=== PATIENT | male | born 1990 | race Two or more races ===

== ENCOUNTER 2024-07-04 14:28 | Emergency (ER) | payer MEDICAID, SELFPAY ==
[2024-07-04 14:29] VITALS: BMI 20.7
[2024-07-04 14:46] VITALS: BP 125/77; PULSE 83; RESP 18; TEMP 36.9; O2SAT 96
--- NOTE | 2024-07-04 14:47 | PD.EDRME ---
Rapid Medical Screening Exam RME Arrival date/time: 07/04/24 14:28 Chief Complaint: Back Pain/Injury Time Seen by Provider: 07/04/24 14:46 Vital signs: Vital Signs Temperature 98.4 F 07/04/24 14:46 Pulse Rate 83 07/04/24 14:46 Respiratory Rate 18 07/04/24 14:46 Blood Pressure 125/77 07/04/24 14:46 Pulse Oximetry (%) 96 07/04/24 14:46 Oxygen Delivery Method Room Air 07/04/24 14:46
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
[2024-07-04] MEDS: KETOROLAC INJ 60 MG/2 ML VIAL 30 MG IM (18:28)
== END 2024-07-04 18:37 | disposition home or self-care (01) ==
PROVIDERS: Emergency Provider Emergency Medicine; PCP Nurse Practitioner Family
DX: S39.012A Strain of muscle, fascia and tendon of lower back, initial encounter (principal); S29.9XXA Unspecified injury of thorax, initial encounter; V89.9XXA Person injured in unspecified vehicle accident, initial encounter
CPT/HCPCS: 72070; 72072; 72100; 96372; 99283; J1885

== ENCOUNTER → 2024-10-24 | Outpatient (CLI) | payer MEDICAID, SELFPAY ==
[2024-10-24 12:17] LABS: Basophils # (Auto) 0.1 Thou/mm3 (0.0-0.2); Basophils % (Auto) 1 % (0-2.5); Eosinophils # (Auto) 0.1 Thou/mm3 (0.0-0.5); Eosinophils % (Auto) 2 % (0-10); Hematocrit 47.6 % (41.0-53.0); Hemoglobin 16.8 g/dL (13.5-16.0); Immature Granulocytes Auto 0.04 Thou/mm3 (0.00-0.00); Lymphocytes # (Auto) 1.8 Thou/mm3 (1.0-4.8); Lymphocytes % (Auto) 24 % (10-50); Mean Corpuscular HGB Conc 35.3 g/dl (31.0-37.0); Mean Corpuscular Hemoglobin 31.2 pg (25.0-35.0); Mean Corpuscular Volume 89 fL (80-100); Monocytes # (Auto) 0.5 Thou/mm3 (0.0-0.8); Monocytes % (Auto) 6 % (0-12); Neutrophils # (Auto) 5.1 Thou/mm3 (1.8-7.7); Neutrophils % (Auto) 67 % (37-80); Nucleated Red Blood Cell # 0.00 Thou/mm3 (0.00-0.00); Nucleated Red Blood Cell % 0 /100 WBC (0); Platelet Count 225 Thou/mm3 (140-440); RDW Standard Deviation 38.2 fL (35.1-43.9); Red Blood Count 5.38 Miln/mm3 (4.50-5.90); White Blood Count 7.6 Thou/mm3 (3.8-10.6)
[2024-10-24 13:40] LABS: Alanine Aminotransferase 24 U/L (10-49); Albumin, Serum 4.8 gm/dL (3.5-5.0); Albumin/Globulin Ratio 1.5 (1.2-2.2); Alkaline Phosphatase 95 U/L (46-116); Anion Gap 11 (7-16); Aspartate Amino Transferase 23 U/L (0-34); BUN/Creatinine Ratio 12 Ratio (12-20); Bilirubin,Total 1.0 mg/dL (0.3-1.2); Blood Urea Nitrogen 12 mg/dL (9-23); Calcium 10.1 mg/dL (8.3-10.6); Calcium (Corrected) 10.1 mg/dL (8.5-10.1); Carbon Dioxide 26.6 mMol/L (20.0-31.0); Chloride 102 mMol/L (98-107); Creatinine (Component) 1.0 mg/dL (0.6-1.3); Globulin 3.2 gm/dL (2.3-3.5); Glucose 94 mg/dL (74-106); Osmolality,Calculated 279 (275-295); Potassium 4.2 mMol/L (3.4-5.1); Sodium 140 mMol/L (136-145); Total Protein 8.0 gm/dL (5.7-8.2); eGFR > 60 See Note
== END | disposition home or self-care (01) ==
PROVIDERS: PCP Family Medicine; Referring Provider Family Medicine; Visit Provider Family Medicine
DX: R13.10 Dysphagia, unspecified (principal)
CPT/HCPCS: 36415; 80053; 85025

== ENCOUNTER → 2024-11-07 | Outpatient (CLI) | payer MEDICAID, SELFPAY ==
--- NOTE | 2024-11-07 09:25 | XR_ITS ---
Examination: Esophagram standard Fluoroscopy Upright PA chest single view Upright soft tissue lateral neck single view 61 spot fluoroscopic films of the esophagus INDICATIONS: Difficulty swallowing 3 weeks Date and time: November 08, 2019 0516 hours TECHNIQUE AND FINDINGS: Upright PA chest single view demonstrates normal heart size, lungs are clear Soft tissue lateral neck demonstrates moderate cervical spondylosis, normal epiglottis Patient swallowed thin barium with primary peristaltic esophageal waves noted Intermittent gastroesophageal reflux No esophageal ulceration No constricting esophageal lesion There are secondary and tertiary esophageal contractions IMPRESSION: Esophageal dysmotility Intermittent gastroesophageal reflux. No stricture at the gastroesophageal junction Fluoroscopy 0.11 minutes 61 spot fluoroscopic films of the esophagus
== END | disposition home or self-care (01) ==
PROVIDERS: PCP Family Medicine; Referring Provider Family Medicine; Visit Provider Family Medicine
DX: K21.9 Gastro-esophageal reflux disease without esophagitis (principal); K22.89 Other specified disease of esophagus
CPT/HCPCS: 74220; A4649

== ENCOUNTER 2024-11-30 05:58 | Observation (INO) | payer MEDICAID, SELFPAY ==
[2024-11-30] VITALS (7 sets, daily range): BP systolic 105–128; BP diastolic 68–92; PULSE 70–93; RESP 14–22; TEMP 36.2–36.8; O2SAT 93–99; BMI 23.1; BMI 22.1
--- NOTE | 2024-11-30 06:17 | PD.EDRME ---
Rapid Medical Screening Exam E Arrival date/time: 11/30/24 05:58 This is a 34-year-old male with a history of alcohol syndrome with difficulty with speech coming in with his father for 2 to 3 days of difficulty eating, swallowing, nausea. Father reports that symptoms started after the patient had a choking episode about 1 month ago Chief Complaint: General Adult/Misc Complain Time Seen by Provider: 11/30/24 06:12 Vital signs: Vital Signs Temperature 97.6 F 11/30/24 06:10 Pulse Rate 86 11/30/24 06:10 Respiratory Rate 22 H 11/30/24 06:10 Blood Pressure 106/73 11/30/24 06:10 Pulse Oximetry (%) 99 11/30/24 06:10 Oxygen Delivery Method Room Air 11/30/24 06:10
[2024-11-30 06:42] LABS: Collection Type, Urine Clean Catch; Squamous Epithelial Cell,Urine 0 /hpf (0-5)
[2024-11-30 06:44] LABS: Basophils # (Auto) 0.1 Thou/mm3 (0.0-0.2); Basophils % (Auto) 1 % (0-2.5); Eosinophils # (Auto) 0.1 Thou/mm3 (0.0-0.5); Eosinophils % (Auto) 1 % (0-10); Hematocrit 47.2 % (41.0-53.0); Hemoglobin 16.4 g/dL (13.5-16.0); Immature Granulocytes Auto 0.04 Thou/mm3 (0.00-0.00); Lymphocytes # (Auto) 1.4 Thou/mm3 (1.0-4.8); Lymphocytes % (Auto) 15 % (10-50); Mean Corpuscular HGB Conc 34.7 g/dl (31.0-37.0); Mean Corpuscular Hemoglobin 31.2 pg (25.0-35.0); Mean Corpuscular Volume 90 fL (80-100); Monocytes # (Auto) 0.4 Thou/mm3 (0.0-0.8); Monocytes % (Auto) 4 % (0-12); Neutrophils # (Auto) 7.9 Thou/mm3 (1.8-7.7); Neutrophils % (Auto) 80 % (37-80); Nucleated Red Blood Cell # 0.00 Thou/mm3 (0.00-0.00); Nucleated Red Blood Cell % 0 /100 WBC (0); Platelet Count 210 Thou/mm3 (140-440); RDW Standard Deviation 39.5 fL (35.1-43.9); Red Blood Count 5.26 Miln/mm3 (4.50-5.90); White Blood Count 9.9 Thou/mm3 (3.8-10.6)
[2024-11-30 06:56] LABS: Amorphous Crystals,Urine Present (Absent); Bilirubin,Urine Negative (Negative); Blood,Urine Negative (Negative); Clarity,Urine Clear (Clear/Hazy); Color,Urine Yellow (Lt Yel-Yel); Culture Indicated,Urine Not Indicated; Glucose, Urine Negative (Negative); Ketones,Urine 1+ (Negative); Leukocyte Esterase,Urine Negative (Negative); Nitrite,Urine Negative (Negative); PH,Urine 6.5 (5.0-7.0); Protein,Urine Trace (Neg - Trace); RBC,Urine 4 /hpf (0-3); Specific Gravity,Urine 1.027 (1.001-1.035); Urobilinogen,Urine Negative mg/dL (0.0-1.0); WBC,Urine 1 /hpf (0-5)
[2024-11-30 06:58] LABS: Amphetamine/Methamp Scrn,U Negative (Negative); Barbiturate Screen,Urine Negative (Negative); Benzodiazepines Screen,Urine Negative (Negative); Benzoylecgonine Screen, Ur Negative (Negative); Fentanyl Screen,Urine Negative (Negative); Opiate Screen,Urine Negative (Negative); THC Screen,Urine Negative (Negative)
[2024-11-30 07:02] LABS: Carbon Dioxide 27.0 mMol/L (20.0-31.0); Chloride 107 mMol/L (98-107); Potassium 3.9 mMol/L (3.4-5.1); Sodium 144 mMol/L (136-145)
[2024-11-30 07:03] LABS: Alanine Aminotransferase 42 U/L (10-49); Albumin, Serum 4.8 gm/dL (3.5-5.0); Albumin/Globulin Ratio 1.7 (1.2-2.2); Alkaline Phosphatase 100 U/L (46-116); Anion Gap 10 (7-16); Aspartate Amino Transferase 33 U/L (0-34); BUN/Creatinine Ratio 16 Ratio (12-20); Bilirubin,Total 1.4 mg/dL (0.3-1.2); Blood Urea Nitrogen 14 mg/dL (9-23); Calcium 10.0 mg/dL (8.3-10.6); Calcium (Corrected) 10.0 mg/dL (8.5-10.1); Creatinine (Component) 0.9 mg/dL (0.6-1.3); Globulin 2.9 gm/dL (2.3-3.5); Glucose 104 mg/dL (74-106); Lipase 32 U/L (12-53); Magnesium 2.1 mg/dL (1.6-2.6); Osmolality,Calculated 287 (275-295); Total Protein 7.7 gm/dL (5.7-8.2); eGFR > 60 See Note
[2024-11-30 07:05] LABS: Sperm,Urine Present
--- NOTE | 2024-11-30 07:51 | XR_ITS ---
Examination: CT chest with intravenous contrast CT abdomen with intravenous contrast CT pelvis with intravenous contrast 2-D coronal and sagittal reconstructions Time of exam: November 30, 2024, 0843 hours INDICATIONS: Unable to swallow, 20 pound weight loss over the last month, generalized abdominal pain today CTDI: vol (mGy) : 11.4 DLP: (mGycm): 898 Technique: Multiple axial images of the chest, abdomen and pelvis with intravenous contrast, 3.0 mm slice thickness. Images obtained post intravenous injection Isovue 370 60 cc. 2-D sagittal and coronal reconstructions. Low dose protocols were performed. One or more of the following dose reduction techniques were used; automated exposure control, adjustment of the mA and/or KV according to patient size, use of iterative reconstruction technique. Findings: No thoracic aortic aneurysmal dilatation or dissection No pulmonary artery emboli on this non-CTA study No paratracheal tracheobronchial or bronchopulmonary adenopathy. 2 mm pulmonary nodule anterior segment right upper lobe image 183. No pneumonia or pulmonary edema No thoracic esophageal mass No focal liver or splenic lesion The inferior vena cava is dilated, clinical correlation advised No adrenal mass No renal or ureteral calculi Abdominal aorta is normal in size 14 mm fat-containing umbilical hernia. No bowel obstruction No pericecal inflammatory change No diverticulitis Normal seminal vesicles. Prostate is not enlarged Urinary bladder intact The osseous structures are intact IMPRESSION: No mediastinal lymphadenopathy. No pneumonia or pulmonary edema 2 mm pulmonary nodule anterior segment right upper lobe, recommend PA lateral chest 6 month follow-up No pneumonia or pulmonary edema No esophageal mass appreciated Inferior vena cava is dilated, measuring 35 mm, clinical correlation advised, consider abdominal sonography follow-up to exclude clot in the inferior vena cava No CT findings of bowel obstruction appendicitis or diverticulitis
--- NOTE | 2024-11-30 08:31 | XR_ITS ---
Examination: CT soft tissue neck, with intravenous contrast. 2-D coronal reconstructions. 2-D sagittal reconstructions. Date and time of exam :November 30, 2024, 0847 hours INDICATIONS: Unable to swallow with 20 pound weight loss this month, generalized abdominal pain. CTDI: vol (mGy):11.6 DLP: (mGycm):353 Technique: 1.25 mm axial sections of the neck of the obtained. Coronal and sagittal reconstructions have been obtained. Intravenous contrast administered 60 cc Isovue-370. Low dose protocols were performed. One or more of the following dose reduction techniques were used; automated exposure control, adjustment of the mA and/or KV according to patient size, use of iterative reconstruction technique. Findings: No nasopharyngeal or oropharyngeal mass Patient motion significantly degrades scan image quality The larynx does not appear remarkable Thyroid lobes are not enlarged The esophageal wall in the neck region appears thickened Lung apices are clear No pathologic cervical lymphadenopathy Mild to moderate degenerative disc disease C5-C6 IMPRESSION: No soft tissue neck mass or pathologic lymphadenopathy Thickening of the esophageal wall in the neck region Given the patient's presentation, consider repeat standard fluoroscopically guided esophagram follow-up
[2024-11-30] MEDS: ONDANSETRON INJ 2 MG/ML INJ 2 ML 4 MG IVP (09:34)
[2024-11-30] MEDS: HYDROmorphone INJ 2 MG/ML VIAL 0.5 MG IVP (09:34)
--- NOTE | 2024-11-30 10:35 | EDNOTE_ITS ---
ED General RME/HPI General Chief complaint: General Adult/Misc Complain Stated complaint: THROAT PAIN,VOMITING, NOT EATING Time Seen by Provider: 11/30/24 06:12 Arrival date/time: 11/30/24 05:58 RME / HPI RME / HPI narrative: 11/30/24 05:58 This is a 34-year-old male with a history of alcohol syndrome with difficulty with speech coming in with his father for 2 to 3 days of difficulty eating, swallowing, nausea. Father reports that symptoms started after the patient had a choking episode about [address] AMBER SHAW ED EVALUATION 34 year old male with history of alcohol syndrome and developmental delay, presents to the ED for evaluation of abdominal pain that began earlier this morning. Patient reports the pain is located throughout the abdomen adding I feel horrible and rating as severe. Associated with constipation, last bowel movement two days ago. Denies fever, chills, chest pain, cough, shortness of breath, vomiting, diarrhea, or urinary complaints. Additional history is provided by the patient's grandfather, who reports that approximately 1.5 months ago, the patient choked on a piece of watermelon while eating. Since then, the patient has had persistent difficulty swallowing, with a sensation of something stuck in my throat. Every attempt to swallow solids has been followed by immediate vomiting. Patient has been on a pureed and liquid diet due to this issue and has had ~ 19lb weight loss. Grandfather reports the patient has consulted his PCP and underwent a swallow study, which showed no obstruction. The patient has been referred to a GI specialist for further evaluation. Related Data Home Medications ?Medication ?Instructions ?Recorded ?Confirmed sertraline 25 mg tablet (Zoloft) 50 mg PO HS Anxiety # 0 tabs 02/03/14 04/19/18 Previous Rx's ?Medication ?Instructions ?Recorded ibuprofen 600 mg tablet 1 tab PO Q8HR PRN INFLAMMATI ON #30 05/20/16 tabs ondansetron 4 mg disintegrating 4 mg PO Q8H PRN nausea and 11/01/22 tablet vomiting #10 tabs lidocaine 5 % topical patch 1 patch topical Q24H #15 e a 07/04/24 (Lidoderm) methocarbamol 500 mg tablet 500 mg PO TID #15 tabs Allergies Allergy/AdvReac Type Severity Reaction Status Date / Time No Known Allergies Allergy Verified 11/30/24 06:00 Review of Systems Review of Systems Systems Reviewed: All systems reviewed, normal except as documented Past Medical History Past Medical History RESPIRATORY: Positive Asthma GASTROINTESTINAL: Positive Gastrointestinal Disorders MUSCULOSKELETAL: Positive Musculoskeletal Disorders and Arthritis PSYCHO/SOCIAL: Positive Depression and Anxiety Family History FAMILY HISTORY: Positive Family Endocrine Disorders (PT'S GRANDFATHER DM) Surgical History SURGICAL: Positive Knee Sx (BILAT.) Social History SMOKING STATUS: Never smoker ED Exam Narrative Physical exam: See MDM Course Quality Measures none Orders Category Date Time Status CT Screening NOW Care 11/30/24 07:[address] Screening NOW Care 11/30/24 08:31 Active IV [Insert IV] NOW Care 11/30/24 07:51 Active Consult to Gastroenterology Stat Cons 11/30/24 10:[address] chest abdomen pelvis w Stat Exams 11/30/24 07:[address] soft tissue neck w con Stat Exams 11/30/24 08:31 Completed XR esophogram standard Stat Exams 11/30/24 10:24 Stop Req CBC Stat Lab 11/30/24 06:31 Completed Comprehensive Metabolic Panel Stat Lab 11/30/24 06:31 Completed Drug Screen,Urine Stat Lab 11/30/24 06:37 Completed Lipase Stat Lab 11/30/24 06:31 Completed Mag [Magnesium] Stat Lab 11/30/24 06:31 Completed UA, C/S IF [Urinalysis, C/S if Indicated] Stat Lab 11/30/24 06:37 Completed HYDROmorphone INJ [Dilaudid Inj] Med 11/30/24 09:30 Active 0.5 mg IVP Q30MIN PRN Ondansetron Inj [Zofran Inj] Med 11/30/24 09:24 Discontinued 4 mg IVP X1 ONE Vital Signs Vital signs: Vital Signs Temperature 97.6 F 11/30/24 06:10 Pulse Rate 86 11/30/24 06:10 Respiratory Rate 22 H 11/30/24 06:10 Blood Pressure 106/73 11/30/24 06:10 Pulse Oximetry (%) 99 11/30/24 06:10 Oxygen Delivery Method Room Air 11/30/24 06:10 Discharge Plan Plan Patient Disposition: Admit Acute Care w/in Hospital Prescriptions/Referrals Prescriptions/Med Rec: No Action sertraline [Zoloft] 25 MG tablet 50 mg PO HS Qty: 0 ibuprofen 600 MG tablet 1 tab PO Q8HR PRN (Reason: INFLAMMATION) Qty: 30 0RF ondansetron 4 mg tablet,disintegrating 4 mg PO Q8H PRN (Reason: nausea and vomiting) Qty: 10 0RF lidocaine [Lidoderm] 5 % adhesive patch,medicated 1 patch topical Q24H Qty: 15 0RF Rx Instructions: leave on most painful area for up to 12 hrs, then remove. methocarbamol 500 mg tablet 500 mg PO TID Qty: 15 0RF Referrals: Alin Rodriguez MD [Primary Care Provider, Family Practice] - In 1 week Problem List Clinical Impression: Esophageal dysmotility Patient/Caregiver Discharge Instructions Print Language: Paraguayan Stand Alone Forms: [facility] Award Info., Patient Portal Info Letter MDM Narrative MDM hospital course: This section includes all my notes and documentations, including HPI, PE, and ED course. Joselito Avalos MD ? HPI: 34 year old male with history of alcohol syndrome and developmental delay, presents to the ED for evaluation of abdominal pain that began earlier this morning. Patient reports the pain is located throughout the abdomen adding I feel horrible and rating as severe. Associated with constipation, last bowel movement two days ago. Denies fever, chills, chest pain, cough, shortness of breath, vomiting, diarrhea, or urinary complaints. Additional history is provided by the patient's grandfather, who reports that approximately 1.5 months ago, the patient choked on a piece of watermelon while eating. Since then, the patient has had persistent difficulty swallowing, with a sensation of something stuck in my throat. Every attempt to swallow solids has been followed by immediate vomiting. Patient has been on a pureed and liquid diet due to this issue and has had ~ 19lb weight loss. Grandfather reports the patient has consulted his PCP and underwent a swallow study, which showed no obstruction. The patient has been referred to a GI specialist for further evaluation. ? ROS: All negative except as documented in HPI. ? PE: GENERAL APPEARANCE:? Awake, alert, developmental delay, slurred speech, no acute distress VITALS: All vitals were reviewed and the pulse ox is % on room air, which is normal according to my interpretation. HEENT: Normocephalic, atraumatic; pupils equal, round, reactive to light; EOMI; mucous membranes pink, moist; oropharynx clear NECK: Supple LUNGS: CTABL; no wheezes, no rales, no rhonchi HEART: Regular rate, regular rhythm; normal S1, S2; no murmurs ABDOMEN: non distended; normal BS;? soft, mild to moderate tenderness to palpation in all quadrants, no guarding, no rebound; no masses, no organomegaly, no hernia?? EXTREMITIES:? atraumatic; no edema NEUROLOGIC: Awake, alert, developmental delay, slurred speech PSYCHIATRIC:? appropriate mood and affect SKIN: warm, dry, normal color; no rashes ? I reviewed all diagnostic test results: My review of the soft tissue neck CT report is: Patient has motion artifact ot herwise no abnormalities My review of the chest/abdomen/pelvis CT report is: No acute pathology Blood tests and urine test: CBC within normal limits, total bili 1.4 otherwise CMP is within normal limits, urinalysis negative for infection 1034: I spoke with GI Dr. Hoyt, recommend admission for PEG tube placement. At this point, diagnoses include: Esophageal dysmotility ? Treatment here included: Dilaudid, Zofran ? Patient reported improvement in abdominal pain after medications. I spoke with hospitalist team B regarding admission. Clinical Information Provided by patient and family Medical Records Reviewed [facility] Meds/Rx Considered, not Ordered None Labs/Rad/Tests considered, not Ordered None Chronic Illness/Social Conditions which may negatively complicate care or outcome(s)-explain: Developmentally delayed EKG EKG not done Lab Interpretation Labs: see narrative above Imaging Imaging interpretation: see narrative above Medication Administration(s) Medication Administration History Hydromorphone HCl (Hydromorphone Inj 2 Mg/Ml Vial) 0.5 mg IVP Q30MIN PRN PRN Reason: PAIN Last Admin: 11/30/24 09:34 Dose: 0.5 mg Documented By: VL Discontinued Medications Ondansetron HCl (Ondansetron Inj 2 Mg/Ml Inj 2 Ml) 4 mg IVP X1 ONE; Protocol Stop: 11/30/24 09:25 Last Admin: 11/30/24 09:34 Dose: 4 mg Documented By: VL See above Diagnosis Most likely dx, and/or detailed dx discussion: esophageal dysmotility Dispositon Disposition: Admit
--- NOTE | 2024-11-30 14:28 | PC.NURSE ---
1405 Received patient from . Report received from [facility].
--- NOTE | 2024-11-30 14:53 | ESHP_ITS ---
Documentation for date of: 11/30/24 HPI History of Present Illness Chief complaint: Dysphagia History of present illness: 34-year-old male with significant past medical history of alcohol syndrome, speech impairment, chronic dysphagia presented to the hospital with worsening of dysphagia since last 2 months. Patient endorsed that he had dysphagia almost his entire life. In 2019, underwent upper GI endoscopy dilatation. Reported that he has on and off difficulty in swallowing but in the last 2 months it got worse and where he is not able to swallow any solid food and is only taking pur?ed foods and underwent endoscopy which did not show any structural abnormalities but on fluoroscopy, noted to have dysmotility disorder 1 month ago. As the dysphagia is progressing and is not able to swallow he came into the ED for further management. Also endorsed that he had almost 19 pound weight loss over the last 1 to 2 months. ED course: - Vitals are stable at the time of admission - Labs are significant for hemoglobin 16.4, total bilirubin 1.4 - CT chest/abdomen/face showed 2 mm pulmonary nodule in the anterior segment right upper lobe, IVC is dilated - Patrol Deputy Sheriff, Dr. Hoyt is consulted and he recommended to admit the patient for PEG tube placement Past medical history: alcohol syndrome, speech difficulty, dysphagia Past surgical history: Salivary gland surgery requiring removal of the left submandibular gland for excessive drooling Social history: Lives with grandparents, works in the elementary school cafeteria, denies smoking, alcohol, other illicit drug abuse Allergies: NKDA Review of Systems Review of Systems Systems Reviewed: All systems reviewed, normal except as documented Exam Vital Signs Temp Pulse Resp BP Pulse Ox O2 Del Method 97.4 F 76 18 128/83 95 Room Air 11/30/24 14:14 11/30/24 14:14 11/30/24 14:14 11/30/24 14:14 11/30/24 14:14 11/30/24 14:14 Narrative Exam General: Awake. HEENT: Normocephalic, atraumatic, mucous membranes moist. Heart: Regular rate and rhythm, no murmurs. Lungs: Clear to auscultation with no wheezing or crackles. Abdomen: Soft, nondistended, nontender, positive bowel sounds. ?No guarding or rebound tenderness. Neurologic: Alert and oriented x3, no gross neurological deficit, and patient able to move all 4 extremities. Extremities: No edema. Skin: No rash or ecchymoses. Results: Labs 11/30/24 06:31 11/30/24 06:31 Labs: Short CBC 11/30/24 Range/Units 06:31 WBC 9.9 (3.8-10.6) Thou/mm3 Hgb 16.4 H (13.5-16.0) g/dL Hct 47.2 (41.0-53.0) % Plt Count 210 (140-440) Thou/mm3 BMP 11/30/24 06:31 Sodium 144 Potassium 3.9 Chloride 107 Carbon Dioxide 27.0 BUN 14 Creatinine 0.9 Glucose 104 Calcium 10.0 Liver Function 11/30/24 Range/Units 06:31 Total Bilirubin 1.4 H (0.3-1.2) mg/dL AST 33 (0-34) U/L ALT 42 (10-49) U/L Alkaline Phosphatase 100 (46-116) U/L Albumin 4.8 (3.5-5.0) gm/dL Urine 11/30/24 Range/Units 06:37 Urine Color Yellow (Lt Yel-Yel) Urine Clarity Clear (Clear/Hazy) Urine pH 6.5 (5.0-7.0) Ur Specific [place] 1.027 (1.001-1.035) Urine Protein Trace (Neg - Trace) Urine Glucose (UA) Negative (Negative) Quality Measures Quality Measures none Medications Home Medications and Allergies Allergies Allergy/AdvReac Type Severity Reaction Status Date / Time No Known Allergies Allergy Verified 11/30/24 06:00 Visit Medications Acetaminophen (Acetaminophen 325 Mg Tablet) 650 mg PO Q6H PRN PRN Reason: Fever >101.5 Stop: 12/30/24 11:27 Hydromorphone HCl (Hydromorphone Inj 2 Mg/Ml Vial) 0.5 mg IVP Q30MIN PRN PRN Reason: PAIN Last Admin: 11/30/24 09:34 Dose: 0.5 mg Lactated Ringer's (Lactated Ringers) 1,000 mls @ 100 mls/hr IV .Q10H ONE Stop: 11/30/24 21:30 Ondansetron HCl (Ondansetron Inj 2 Mg/Ml Inj 2 Ml) 4 mg IVP Q6H PRN; Protocol PRN Reason: NAUSEA OR VOMITING Stop: 12/30/24 11:27 Pantoprazole Sodium (Pantoprazole Inj 40 Mg Vial) 40 mg IVP QDAY MER Stop: 12/31/24 08:59 Discontinued Medications Ondansetron HCl (Ondansetron Inj 2 Mg/Ml Inj 2 Ml) 4 mg IVP X1 ONE; Protocol Stop: 11/30/24 09:25 Last Admin: 11/30/24 09:34 Dose: 4 mg Assessment & Plan Plan 34-year-old male with significant past medical history of alcohol syndrome, speech impairment, chronic dysphagia presented to the hospital with worsening of dysphagia since last 2 months. # Dysphagia # Esophageal dysmotility disorder - Patient has history of dysphagia almost his entire life but noted to have worsened dysphagia in the last 2 months for which he underwent endoscopy and did not find any mechanical obstruction but later underwent a fluoroscopy study and found to have esophageal dysmotility - Patient is on pur?ed diet since last 1 month and noted to have 19 LB weight loss due to dysphagia - Vitals are stable at the time of admission - Physical examination remains unremarkable - Labs are unremarkable except for hemoglobin 16.5 Plan - Dr. Hoyt, classified advertising clerk was consulted - PEG tube placement later in the day - N.p.o. for now # History of alcohol syndrome - Stable for now Hospital Maintenance: Dispo: medsurg DVT ppx: SCD GI ppx: protonix Diet: NPO IV lines: Peripheral Code status: Full Patient plan of care was discussed with the attending physician, Dr. Padyd Elam, PGY2 Attending Provider Attestation/Addendum I attest that I was physically present for the evaluation, physical examination, lab and imaging review of the patient with the residents. I discussed the case with the residents and agree with the findings and plans of care as documented above. After examination of the patient and review of the clinical data I feel that this patient needs admission to the hospital for further treatment/evaluation. Tatyana Thomason MD
--- NOTE | 2024-11-30 15:02 | XR_ITS ---
Examination: Abdomen sonogram, complete Date and time of exam: November 30, 2024 1509 hours INDICATIONS: Enlarged inferior vena cava on CT chest abdomen study today. Technique: Multiple real-time grayscale transabdominal sonographic images of the abdomen have been obtained. Findings: 7 mm gallbladder polyp No gallstones Normal gallbladder wall. Normal common bile duct 0.4 cm Pancreas obscured by bowel gas Mid aorta visualized not enlarged Liver 14.5 cm no liver lesion Normal hepatopedal portal venous flow Patent IVC no IVC thrombus Right kidney 9.5 cm cortex 1.6 cm Left kidney 9.8 cm cortex 1.8 cm Spleen 12.7 cm IMPRESSION: 7 mm gallbladder polyp Liver normal size No IVC thrombus
[2024-11-30] MEDS: RINGERS LACTATED 1000 ML 1,000 ML 100 ML IV (17:09)
--- NOTE | 2024-11-30 23:05 | ESCONSULT_ITS ---
HPI Data of Consult Requesting Physician: Tatyana Thomason MD Primary Care Provider: Alin Rodriguez MD Consult Narrative Reason for consult: Progressive dysphagia History of present illness: History from the chart review 34 years old male evaluated request of the ER physician for progressive dysphagia for the last 2 mother losing a lot of weight Patient does have a history of endoscopic dilatation in 2019 and a fluoroscopic examination a month ago showed dysmotility of the esophagus Patient has a history of alcohol syndrome with speech impairment cc:: cc: Tatyana Thomason MD Review of Systems Review of Systems ROS Unobtainable: unobtainable due to medical condition Past Medical History Surgical History OTHER SURGICAL HX: As in the history present illness Meds Home Medications and Allergies Allergies Allergy/AdvReac Type Severity Reaction Status Date / Time No Known Allergies Allergy Verified 11/30/24 06:00 Exam Vital Signs Temp Pulse Resp BP Pulse Ox O2 Del Method 97.3 F 70 18 106/72 93 L Room Air 11/30/24 20:00 11/30/24 20:00 11/30/24 20:00 11/30/24 20:00 11/30/24 20:00 11/30/24 20:00 Constitutional Comments: Chronically ill-appearing Routine Respiratory Exam Comments: Normal to auscultation Routine Abdominal Exam Comments: Soft nontender Results Labs 11/30/24 06:31 11/30/24 06:31 Labs: Short CBC 11/30/24 Range/Units 06:31 WBC 9.9 (3.8-10.6) Thou/mm3 Hgb 16.4 H (13.5-16.0) g/dL Hct 47.2 (41.0-53.0) % Plt Count 210 (140-440) Thou/mm3 BMP 11/30/24 06:31 Sodium 144 Potassium 3.9 Chloride 107 Carbon Dioxide 27.0 BUN 14 Creatinine 0.9 Glucose 104 Calcium 10.0 Liver Function 11/30/24 Range/Units 06:31 Total Bilirubin 1.4 H (0.3-1.2) mg/dL AST 33 (0-34) U/L ALT 42 (10-49) U/L Alkaline Phosphatase 100 (46-116) U/L Albumin 4.8 (3.5-5.0) gm/dL Urine 09/10/25 Range/Units 06:37 Urine Color Yellow (Lt Yel-Yel) Urine Clarity Clear (Clear/Hazy) Urine pH 6.5 (5.0-7.0) Ur Specific [place] 1.027 (1.001-1.035) Urine Protein Trace (Neg - Trace) Urine Glucose (UA) Negative (Negative) Assessment and Plan Additional Assessment & Plan Additional Plan: Progressive dysphagia in a patient with previous history of endoscopic dilatation In addition patient has moderate dysfunction of the esophagus Suggestions Patient should initially undergo fiberoptic esophagogastroduodenoscopy with aggressive esophageal dilatation and if the dysphagia improved nothing needs to be done If no improvement in the dysphagia consider placement of a percutaneous endoscopic gastrostomy tube We will get a consent after talking with the family patient has been scheduled tentatively for tomorrow Other medical problems include alcohol syndrome with speech impairment Thank you very much for the opportunity to participate in the care of this patient
[2024-12-01] VITALS (14 sets, daily range): BP systolic 98–171; BP diastolic 56–111; PULSE 63–117; RESP 16–25; TEMP 36.1–36.8; O2SAT 93–100; BMI 22.1
[2024-12-01] MEDS: RINGERS LACTATED 1000 ML 1,000 ML 100 ML IV (02:49)
[2024-12-01 05:53] LABS: Basophils # (Auto) 0.1 Thou/mm3 (0.0-0.2); Basophils % (Auto) 1 % (0-2.5); Eosinophils # (Auto) 0.1 Thou/mm3 (0.0-0.5); Eosinophils % (Auto) 2 % (0-10); Hematocrit 45.1 % (41.0-53.0); Hemoglobin 15.5 g/dL (13.5-16.0); Immature Granulocytes Auto 0.01 Thou/mm3 (0.00-0.00); Lymphocytes # (Auto) 1.8 Thou/mm3 (1.0-4.8); Lymphocytes % (Auto) 24 % (10-50); Mean Corpuscular HGB Conc 34.4 g/dl (31.0-37.0); Mean Corpuscular Hemoglobin 31.3 pg (25.0-35.0); Mean Corpuscular Volume 91 fL (80-100); Monocytes # (Auto) 0.5 Thou/mm3 (0.0-0.8); Monocytes % (Auto) 7 % (0-12); Neutrophils # (Auto) 5.0 Thou/mm3 (1.8-7.7); Neutrophils % (Auto) 67 % (37-80); Nucleated Red Blood Cell # 0.00 Thou/mm3 (0.00-0.00); Nucleated Red Blood Cell % 0 /100 WBC (0); Platelet Count 168 Thou/mm3 (140-440); RDW Standard Deviation 39.9 fL (35.1-43.9); Red Blood Count 4.95 Miln/mm3 (4.50-5.90); White Blood Count 7.6 Thou/mm3 (3.8-10.6)
[2024-12-01 06:33] LABS: Alanine Aminotransferase 34 U/L (10-49); Albumin, Serum 4.1 gm/dL (3.5-5.0); Albumin/Globulin Ratio 1.6 (1.2-2.2); Alkaline Phosphatase 89 U/L (46-116); Anion Gap 9 (7-16); Aspartate Amino Transferase 23 U/L (0-34); BUN/Creatinine Ratio 14 Ratio (12-20); Bilirubin,Total 2.2 mg/dL (0.3-1.2); Blood Urea Nitrogen 11 mg/dL (9-23); Calcium 9.2 mg/dL (8.3-10.6); Calcium (Corrected) 9.2 mg/dL (8.5-10.1); Carbon Dioxide 27.8 mMol/L (20.0-31.0); Cardiac Risk Estimate 3.5 RATIO (4.0-6.7); Chloride 107 mMol/L (98-107); Cholesterol 122 mg/dL (132-200); Creatinine (Component) 0.8 mg/dL (0.6-1.3); Estimated Creatinine Clearance 126.3 mL/min (>60); Globulin 2.6 gm/dL (2.3-3.5); Glucose 83 mg/dL (74-106); HDL Cholesterol 35 mg/dL (40-60); LDL Cholesterol,Calculated 78 mg/dL (0-130); Magnesium 2.0 mg/dL (1.6-2.6); Osmolality,Calculated 285 (275-295); Potassium 4.0 mMol/L (3.4-5.1); Sodium 144 mMol/L (136-145); Total Protein 6.7 gm/dL (5.7-8.2); Triglycerides 45 mg/dL (30-150); eGFR > 60 See Note
[2024-12-01 06:50] LABS: Thyroid Stimulating Hormone 2.44 uIU/mL (0.55-4.78)
--- NOTE | 2024-12-01 11:17 | PC.DIETICIAN ---
Nutrition prescription 1. If oral intake is feasible after EGD: Regular diet (adjust food/liquids consistency as needed). 2. If EN is indicated, consider: Jevity 1.2 at 20 ml/hr via OG/NG/PEG tube by pump. Advance 10 ml every 8 hrs to goal rate of 70 ml/hr x 24 hrs. If no IV fluids, water flushes of 30 ml/hr (or per MD).
[2024-12-01] MEDS: RINGERS LACTATED 1000 ML 1,000 ML 125 ML IV ×2 (12:18→20:52)
--- NOTE | 2024-12-01 12:43 | PC.SS ---
Jayce Churchill is a 34 year-old male admitted to [facility] for Dysphagia. SS conducted bedside contact with the patient to complete initial assessment and to discuss discharge planning. Role and reason explained. Patient confirmed demographic information. Patient identifies his grandfather Filemon Churchill [phone] as his surrogate decision maker. Pt states he is able to complete all ADL?s independent. Pt does not possesses any DME. Pts PCP is Alin Rodriguez (last visit 2 weeks). Pharmacy of choice is [facility]. Discharge options discussed and the pt wishes to return home.? Pt grandfather will provide transport. No further intervention required at this time, social studies department chair would be available to address any further concerns. DC Plan: Home Contact: Grandfather-Filemon Address: Confirmed on face sheet PCP: Jennifer
--- NOTE | 2024-12-01 14:47 | ESPR_ITS ---
Documentation for date of: 12/01/24 Subjective Subjective Interval history: No acute events overnight. Reports umbilical pain with ambulation, denies right upper quadrant pain. Found to have 7 mm polyp in gallbladder on liver ultrasound. Consulted Dr. Hernandez who recommends outpatient follow-up for possible cholecystectomy. Plan for EGD with dilatation with Dr. Lai meehan. NPO. Exam Vital Signs Temp Pulse Resp BP Pulse Ox O2 Del Method 97.9 F 81 19 120/75 94 L Room Air 12/01/24 12:00 12/01/24 12:00 12/01/24 12:00 12/01/24 12:00 12/01/24 12:00 12/01/24 12:00 Narrative Exam Physical Exam General: Awake and in no acute distress. Conversational and non-toxic appearing. Mild cognitive impairment and speech delay. HEENT: Normocephalic, atraumatic, mucous membranes moist. Heart: Regular rate and rhythm, normal S1 and S2, no murmurs. Lungs: Clear to auscultation with no wheezing or crackles. Abdomen: Soft, nondistended, nontender, positive bowel sounds. No guarding or rebound tenderness. Neurologic: Alert and oriented x3, no gross neurological deficit, and patient able to move all 4 extremities. Extremities: No edema. Skin: No rash or ecchymoses. Objective Labs 12/01/24 04:40 12/01/24 04:40 Labs: Laboratory Results - last 24 hr 12/01/24 04:40 WBC 7.6 RBC 4.95 Hgb 15.5 Hct 45.1 MCV 91 MCH 31.3 MCHC 34.4 RDW Std Deviation 39.9 Plt Count 168 D Neut % (Auto) 67 Lymph % (Auto) 24 [place] % (Auto) 7 Eos % (Auto) 2 Baso % (Auto) 1 Neut # (Auto) 5.0 Lymph # (Auto) 1.8 [place] # (Auto) 0.5 Eos # (Auto) 0.1 Baso # (Auto) 0.1 Immature Gran # (Auto) 0.01 H Absolute Nucleated RBC 0.00 Immature Gran % 0 Nucleated RBC % 0 Sodium 144 Potassium 4.0 Chloride 107 Carbon Dioxide 27.8 Anion Gap 9 BUN 11 Creatinine 0.8 Estim Creat Clear Calc 126.3 eGFR > 60 BUN/Creatinine Ratio 14 Glucose 83 Calculated Osmolality 285 Calcium 9.2 Corrected Calcium 9.2 Magnesium 2.0 Total Bilirubin 2.2 H D AST 23 ALT 34 Alkaline Phosphatase 89 Total Protein 6.7 Albumin 4.1 D Globulin 2.6 Albumin/Globulin Ratio 1.6 Triglycerides 45 Cholesterol 122 L LDL Cholesterol, Calc 78 HDL Cholesterol 35 L Cholesterol/HDL Ratio 3.5 L TSH 2.44 Quality Measures Quality Measures none Assessment & Plan Assessment Current Active Medications: Generic Name Dose Route Start Last Admin Trade Name Freq PRN Reason Stop Dose Admin Acetaminophen 650 mg 11/30/24 11:28 Acetaminophen 325 Mg Tablet PO 12/30/24 11:27 Q6H PRN Fever >101.5 Hydromorphone HCl 0.5 mg 11/30/24 09:30 11/30/24 09:34 Hydromorphone Inj 2 Mg/Ml Vial IVP 0.5 mg Q30MIN PRN Administration PAIN Lactated Ringer's 1,000 mls @ 125 mls/hr 12/01/24 08:41 12/01/24 12:18 Lactated Ringers IV 12/31/24 08:40 125 mls/hr .Q8H MER Administration Ondansetron HCl 4 mg 11/30/24 11:28 Ondansetron Inj 2 Mg/Ml Inj 2 Ml IVP 12/30/24 11:27 Q6H PRN NAUSEA OR VOMITING Protocol Pantoprazole Sodium 40 mg 12/01/24 09:00 12/01/24 08:49 Pantoprazole Inj 40 Mg Vial IVP 12/31/24 08:59 40 mg QDAY MER Administration Plan Patient is a 34-year-old male with past medical history of alcohol syndrome, speech impairment, chronic dysphagia presented on 11/30 for worsening of dysphagia since last 2 months, admitted for dysphagia workup. # Dysphagia # Esophageal dysmotility disorder Has history of dysphagia almost his entire life, however worsened over the past 2 months. Has been on a pur?ed diet for the past 1 months, noted to have 19 pound weight loss. Lives at home with grandparents (main caretakers). Previous endoscopy did not show mechanical obstruction. Fluoroscopy study found to have esophageal dysmotility. Plan: - GI Dr. Hoyt consulted, appreciate recommendations: Plan for EGD with dilatation tonight, will consider PEG tube as last resort - N.p.o. #7 mm gallbladder polyp Incidental finding on ultrasound liver. ?Consulted surgery Dr Hernandez, appreciate recommendations: Nonurgent at this time, can monitor outpatient if requires cholecystectomy ?CTM for biliary issues #Polycythemia, resolved Hemoglobin 16.4 on admission. ?CTM CBC # History of alcohol syndrome #Mild cognitive impairment #Speech delay Chronic medical problem. ?No need for medical management at this time Health Maintenance Disposition: MedSur DVT prophylaxis: SCDs GI prophylaxis: Protonix Diet: N.p.o. CODE STATUS: Full Patient plan of care was discussed with the attending physician, Dr. Thomason. Ashly Geronimo, PGY-1 Attending Provider Attestation/Addendum I attest that I was physically present for the evaluation, physical examination, lab and imaging review of the patient with the residents. I discussed the case with the residents and agree with the findings and plans of care as documented above. At bedside today, patient states she is feeling well and denies any new complaints. Has only been able to take liquid diet but continues to be unable to tolerate solids. Had mild umbilical pain on ambulation. Noted to have 7 mm gallbladder polyp and elevated in bilirubin to 2.2, discussed with general surgery, recommended outpatient follow-up. Patient is planned for EGD with GI today. Will continue him n.p.o. Tatyana Thomason MD
--- NOTE | 2024-12-01 15:01 | PC.SS ---
Rounding: Pending peg tube placement, Dr. Hoyt following
[2024-12-01] MEDS: ONDANSETRON INJ 2 MG/ML INJ 2 ML 4 MG IVP (18:11)
--- NOTE | 2024-12-01 19:10 | PC.NURSE ---
PATIENT TRANSFER TO OR VIA [facility], [facility] ACCOMPANIED PT.
--- NOTE | 2024-12-01 20:40 | PC.NURSE ---
PATIENT BACK FROM [facility], TRANSFER VIA [facility] ACCOMPANIED BY ARMANDO CROCKETT. PATIENT RESTING CHEST FALL AND RISE, PT ABLE TO HELP TRANSFER HIMSELF BACK TO HOSPITAL BED FROM [facility].
--- NOTE | 2024-12-01 22:55 | PC.NURSE ---
DR. LYN BARRIOS TO GIVE PT TYLENOL PO FOR PAIN.
[2024-12-02] VITALS: BP 97/66; PULSE 69; RESP 18; TEMP 36.2; O2SAT 96
[2024-12-02 04:00] VITALS: BP 98/66; PULSE 70; RESP 18; TEMP 36.1; O2SAT 99
[2024-12-02] MEDS: RINGERS LACTATED 1000 ML 1,000 ML 125 ML IV ×3 (04:43→22:06)
--- NOTE | 2024-12-02 05:10 | PC.NURSE ---
TYLENOL PILLS WERE CRUSH AND MIXED WITH APPLE SAUCE. PT REFUSE TO TAKE THEM BECAUSE OF TASTE. TYLENOL TOSS IN THE TRASH.
[2024-12-02 06:18] LABS: Basophils # (Auto) 0.0 Thou/mm3 (0.0-0.2); Basophils % (Auto) 1 % (0-2.5); Eosinophils # (Auto) 0.1 Thou/mm3 (0.0-0.5); Eosinophils % (Auto) 1 % (0-10); Hematocrit 43.7 % (41.0-53.0); Hemoglobin 15.3 g/dL (13.5-16.0); Immature Granulocytes Auto 0.03 Thou/mm3 (0.00-0.00); Lymphocytes # (Auto) 1.6 Thou/mm3 (1.0-4.8); Lymphocytes % (Auto) 19 % (10-50); Mean Corpuscular HGB Conc 35.0 g/dl (31.0-37.0); Mean Corpuscular Hemoglobin 31.2 pg (25.0-35.0); Mean Corpuscular Volume 89 fL (80-100); Monocytes # (Auto) 0.6 Thou/mm3 (0.0-0.8); Monocytes % (Auto) 7 % (0-12); Neutrophils # (Auto) 6.1 Thou/mm3 (1.8-7.7); Neutrophils % (Auto) 73 % (37-80); Nucleated Red Blood Cell # 0.00 Thou/mm3 (0.00-0.00); Nucleated Red Blood Cell % 0 /100 WBC (0); Platelet Count 166 Thou/mm3 (140-440); RDW Standard Deviation 37.8 fL (35.1-43.9); Red Blood Count 4.90 Miln/mm3 (4.50-5.90); White Blood Count 8.4 Thou/mm3 (3.8-10.6)
[2024-12-02 06:48] LABS: Alanine Aminotransferase 25 U/L (10-49); Albumin, Serum 4.0 gm/dL (3.5-5.0); Albumin/Globulin Ratio 1.6 (1.2-2.2); Alkaline Phosphatase 89 U/L (46-116); Anion Gap 14 (7-16); Aspartate Amino Transferase 17 U/L (0-34); BUN/Creatinine Ratio 9 Ratio (12-20); Bilirubin,Total 2.7 mg/dL (0.3-1.2); Blood Urea Nitrogen 6 mg/dL (9-23); Calcium 9.1 mg/dL (8.3-10.6); Calcium (Corrected) 9.1 mg/dL (8.5-10.1); Carbon Dioxide 24.3 mMol/L (20.0-31.0); Chloride 103 mMol/L (98-107); Creatinine (Component) 0.7 mg/dL (0.6-1.3); Estimated Creatinine Clearance 144.4 mL/min (>60); Globulin 2.5 gm/dL (2.3-3.5); Glucose 77 mg/dL (74-106); Osmolality,Calculated 277 (275-295); Potassium 3.8 mMol/L (3.4-5.1); Sodium 141 mMol/L (136-145); Total Protein 6.5 gm/dL (5.7-8.2); eGFR > 60 See Note
[2024-12-02 07:34] VITALS: BP 110/72; PULSE 104; RESP 20; TEMP 36.3; O2SAT 99
[2024-12-02 08:42] LABS: Bilirubin,Direct 0.1 mg/dL (0.0-0.3)
--- NOTE | 2024-12-02 09:15 | PC.SS ---
Follow up note: Possible peg tube if pt is not able to tolerate diet. Pt will return home with .
[2024-12-02 11:28] LABS: LDH (Lactate Dehydrogenase) 153 U/L (120-246)
[2024-12-02 12:00] VITALS: BP 126/79; PULSE 94; RESP 18; TEMP 36.3; O2SAT 97
[2024-12-02 13:06] LABS: Path Review Blood Smear Sent to Pathologist
[2024-12-02 15:34] VITALS: BP 125/89; PULSE 85; RESP 18; TEMP 36.3; O2SAT 97
[2024-12-02] MEDS: MULTIVITAMINS TABLET 1 TAB PO (17:00)
--- NOTE | 2024-12-02 18:24 | PD.RESPRO ---
Documentation for date of: 12/02/24 Subjective Subjective Interval history: No acute events overnight. S/p dilatation yesterday. Plan to advance diet today, tolerated clear liquid. Pur?e diet for now, dietitian consulted. Bilirubin slightly more elevated today, consulted Dr. Hernandez who continues to recommend outpatient follow-up for potential cystectomy. Exam Vital Signs Temp Pulse Resp BP Pulse Ox O2 Del Method O2 Flow Rate 97.3 F 85 18 125/89 H 97 Room Air 3 12/02/24 15:34 12/02/24 15:34 12/02/24 15:34 12/02/24 15:34 12/02/24 15:34 12/02/24 15:34 12/01/24 20:10 Narrative Exam Physical Exam General: Awake and in no acute distress. Conversational and non-toxic appearing. Mild cognitive impairment and speech delay. HEENT: Normocephalic, atraumatic, mucous membranes moist. Heart: Regular rate and rhythm, normal S1 and S2, no murmurs. Lungs: Clear to auscultation with no wheezing or crackles. Abdomen: Soft, nondistended, nontender, positive bowel sounds. No guarding or rebound tenderness. Neurologic: Alert and oriented x3, no gross neurological deficit, and patient able to move all 4 extremities. Extremities: No edema. Skin: No rash or ecchymoses. Objective Labs 12/03/24 05:45 12/03/24 05:45 Labs: Laboratory Results - last 24 hr 12/02/24 12/02/24 04:46 05:27 WBC 8.4 RBC 4.90 Hgb 15.3 Hct 43.7 MCV 89 MCH 31.2 MCHC 35.0 RDW Std Deviation 37.8 Plt Count 166 Neut % (Auto) 73 Lymph % (Auto) 19 [place] % (Auto) 7 Eos % (Auto) 1 Baso % (Auto) 1 Neut # (Auto) 6.1 Lymph # (Auto) 1.6 [place] # (Auto) 0.6 Eos # (Auto) 0.1 Baso # (Auto) 0.0 Immature Gran # (Auto) 0.03 H Absolute Nucleated RBC 0.00 Immature Gran % 0 Nucleated RBC % 0 Smear Path Review Sent to Pathologist Sodium 141 Potassium 3.8 Chloride 103 Carbon Dioxide 24.3 Anion Gap 14 BUN 6 L Creatinine 0.7 Estim Creat Clear Calc 144.4 eGFR > 60 BUN/Creatinine Ratio 9 L Glucose 77 Calculated Osmolality 277 Calcium 9.1 Corrected Calcium 9.1 Total Bilirubin 2.7 H D Direct Bilirubin 0.1 AST 17 ALT 25 Alkaline Phosphatase 89 Lactate Dehydrogenase 153 Total Protein 6.5 Albumin 4.0 Globulin 2.5 Albumin/Globulin Ratio 1.6 Quality Measures Quality Measures none Assessment & Plan Assessment Current Active Medications: Generic Name Dose Route Start Last Admin Trade Name Freq PRN Reason Stop Dose Admin Acetaminophen 650 mg 12/01/24 17:09 Acetaminophen 325 Mg Tablet PO 12/30/24 11:27 Q6H PRN Fever >101.3 Lactated Ringer's 1,000 mls @ 125 mls/hr 12/01/24 08:41 12/02/24 14:35 Lactated Ringers IV 12/31/24 08:40 125 mls/hr .Q8H EMR Administration Multivitamins 1 tab 12/02/24 16:30 12/02/24 17:00 Multivitamins Tablet PO 01/01/25 16:29 1 tab QDAY MER Administration Ondansetron HCl 4 mg 11/30/24 11:28 12/01/24 18:11 Ondansetron Inj 2 Mg/Ml Inj 2 Ml IVP 12/30/24 11:27 4 mg Q6H PRN Administration NAUSEA OR VOMITING Protocol Pantoprazole Sodium 40 mg 12/01/24 09:00 12/02/24 09:23 Pantoprazole Inj 40 Mg Vial IVP 12/31/24 08:59 40 mg QDAY MER Administration Sennosides 1 tab 12/02/24 10:45 12/02/24 11:16 Senna Tablet PO 01/01/25 10:44 1 tab QDAY MER Administration Protocol Plan Patient is a 34-year-old male with past medical history of alcohol syndrome, speech impairment, chronic dysphagia presented on 11/30 for worsening of dysphagia since last 2 months, admitted for dysphagia workup. # Dysphagia # Esophageal dysmotility disorder Has history of dysphagia almost his entire life, however worsened over the past 2 months. Has been on a pur?ed diet for the past 1 months, noted to have 19 pound weight loss. Lives at home with grandparents (main caretakers). Previous endoscopy did not show mechanical obstruction. Fluoroscopy study found to have esophageal dysmotility. Plan: - GI Dr. Hoyt consulted, appreciate recommendations: Advance diet as tolerated #Hyperbilirubinemia #Gilbert's syndrome? Bilirubin slowly increasing, direct bilirubin and AST/ALT are within normal limits. Patient remains asymptomatic. No tenderness on right upper quadrant. Not currently on any antibiotics or medications that could exacerbate bilirubin. Possibly Gilbert's syndrome as patient feels stressed and is otherwise asymptomatic. - CTM labs and symptoms #7 mm gallbladder polyp Incidental finding on ultrasound liver. ?Consulted surgery Dr Hernandez, appreciate recommendations: Nonurgent at this time, can monitor outpatient if requires cholecystectomy ?CTM for biliary issues #Polycythemia, resolved Hemoglobin 16.4 on admission. ?CTM CBC # History of alcohol syndrome #Mild cognitive impairment #Speech delay Chronic medical problem. ?No need for medical management at this time Health Maintenance Disposition: MedSur DVT prophylaxis: SCDs GI prophylaxis: Protonix Diet: N.p.o. CODE STATUS: Full Patient plan of care was discussed with the attending physician, Dr. Thomason. Ashly Geronimo, PGY-1 Attending Provider Attestation/Addendum I attest that I was physically present for the evaluation, physical examination, lab and imaging review of the patient with the residents. I discussed the case with the residents and agree with the findings and plans of care as documented above. At bedside today, patient states he is feeling well and denies any new complaints.? He has been able to tolerate liquid diet well.? Continues to complain of mild lower abdominal pain, patient does not have bowel movement for few days, we will start him on bowel regimen.? We will also slowly advance his diet.? Bilirubin noted to be uptrending from 2.2-2.7 today, we will discussed with general surgery and obtain direct bilirubin level. Tatyana Thomason MD
--- NOTE | 2024-12-02 18:32 | PD.IMPROG ---
Documentation for date of: 12/02/24 Subjective Subjective Interval history: Patient's status post endoscopic dilatation of the proximal esophageal stricture Able to tolerate clear liquid diet very well advance to full liquid and then may be dysphagia to diet in the morning No need at this point to put the gastrostomy tube Exam Vital Signs Temp Pulse Resp BP Pulse Ox O2 Del Method O2 Flow Rate 97.3 F 85 18 125/89 H 97 Room Air 3 12/02/24 15:34 12/02/24 15:34 12/02/24 15:34 12/02/24 15:34 12/02/24 15:34 12/02/24 15:34 12/01/24 20:10 Objective Labs 12/02/24 05:27 12/02/24 05:27 Labs: Laboratory Results - last 24 hr 12/02/24 12/02/24 04:46 05:27 WBC 8.4 RBC 4.90 Hgb 15.3 Hct 43.7 MCV 89 MCH 31.2 MCHC 35.0 RDW Std Deviation 37.8 Plt Count 166 Neut % (Auto) 73 Lymph % (Auto) 19 [place] % (Auto) 7 Eos % (Auto) 1 Baso % (Auto) 1 Neut # (Auto) 6.1 Lymph # (Auto) 1.6 [place] # (Auto) 0.6 Eos # (Auto) 0.1 Baso # (Auto) 0.0 Immature Gran # (Auto) 0.03 H Absolute Nucleated RBC 0.00 Immature Gran % 0 Nucleated RBC % 0 Smear Path Review Sent to Pathologist Sodium 141 Potassium 3.8 Chloride 103 Carbon Dioxide 24.3 Anion Gap 14 BUN 6 L Creatinine 0.7 Estim Creat Clear Calc 144.4 eGFR > 60 BUN/Creatinine Ratio 9 L Glucose 77 Calculated Osmolality 277 Calcium 9.1 Corrected Calcium 9.1 Total Bilirubin 2.7 H D Direct Bilirubin 0.1 AST 17 ALT 25 Alkaline Phosphatase 89 Lactate Dehydrogenase 153 Total Protein 6.5 Albumin 4.0 Globulin 2.5 Albumin/Globulin Ratio 1.6 Impressions Impression: Dysphagia improved after endoscopic dilatation of the proximal esophageal stricture Advance diet as tolerated Assessment & Plan A&P Narrative Progressive dysphagia in a patient with previous history of endoscopic dilatation In addition patient has moderate dysfunction of the esophagus Suggestions Patient should initially undergo fiberoptic esophagogastroduodenoscopy with aggressive esophageal dilatation and if the dysphagia improved nothing needs to be done If no improvement in the dysphagia consider placement of a percutaneous endoscopic gastrostomy tube We will get a consent after talking with the family patient has been scheduled tentatively for tomorrow Other medical problems include alcohol syndrome with speech impairment Thank you very much for the opportunity to participate in the care of this patient Time Spent With Patient Time: Total time spent is greater than 50% in coordination of care (as documented) at patient's floor/unit and/or counseling patient:
--- NOTE | 2024-12-02 19:06 | PC.NURSE ---
Report received, pt resting eating no currently complaints, grandfather at side
[2024-12-02 20:00] VITALS: BP 121/83; PULSE 86; RESP 20; TEMP 36.8; O2SAT 96
[2024-12-03] VITALS: BP 117/75; PULSE 63; RESP 16; TEMP 37.2; O2SAT 98
[2024-12-03 04:00] VITALS: BP 123/80; PULSE 73; RESP 16; TEMP 36.8; O2SAT 96
[2024-12-03] MEDS: RINGERS LACTATED 1000 ML 1,000 ML 125 ML IV (05:27)
[2024-12-03 06:05] LABS: Basophils # (Auto) 0.0 Thou/mm3 (0.0-0.2); Basophils % (Auto) 1 % (0-2.5); Eosinophils # (Auto) 0.2 Thou/mm3 (0.0-0.5); Eosinophils % (Auto) 2 % (0-10); Hematocrit 41.5 % (41.0-53.0); Hemoglobin 14.8 g/dL (13.5-16.0); Immature Granulocytes Auto 0.01 Thou/mm3 (0.00-0.00); Lymphocytes # (Auto) 1.6 Thou/mm3 (1.0-4.8); Lymphocytes % (Auto) 23 % (10-50); Mean Corpuscular HGB Conc 35.7 g/dl (31.0-37.0); Mean Corpuscular Hemoglobin 31.7 pg (25.0-35.0); Mean Corpuscular Volume 89 fL (80-100); Monocytes # (Auto) 0.5 Thou/mm3 (0.0-0.8); Monocytes % (Auto) 8 % (0-12); Neutrophils # (Auto) 4.6 Thou/mm3 (1.8-7.7); Neutrophils % (Auto) 66 % (37-80); Nucleated Red Blood Cell # 0.00 Thou/mm3 (0.00-0.00); Nucleated Red Blood Cell % 0 /100 WBC (0); Platelet Count 171 Thou/mm3 (140-440); RDW Standard Deviation 38.5 fL (35.1-43.9); Red Blood Count 4.67 Miln/mm3 (4.50-5.90); White Blood Count 7.0 Thou/mm3 (3.8-10.6)
[2024-12-03 06:33] LABS: Alanine Aminotransferase 21 U/L (10-49); Albumin, Serum 3.7 gm/dL (3.5-5.0); Albumin/Globulin Ratio 1.5 (1.2-2.2); Alkaline Phosphatase 81 U/L (46-116); Anion Gap 8 (7-16); Aspartate Amino Transferase 16 U/L (0-34); BUN/Creatinine Ratio 6 Ratio (12-20); Bilirubin,Total 1.6 mg/dL (0.3-1.2); Blood Urea Nitrogen < 5 mg/dL (9-23); Calcium 9.0 mg/dL (8.3-10.6); Calcium (Corrected) 9.2 mg/dL (8.5-10.1); Carbon Dioxide 28.8 mMol/L (20.0-31.0); Chloride 106 mMol/L (98-107); Creatinine (Component) 0.8 mg/dL (0.6-1.3); Estimated Creatinine Clearance 126.3 mL/min (>60); Globulin 2.4 gm/dL (2.3-3.5); Glucose 101 mg/dL (74-106); Osmolality,Calculated 282 (275-295); Potassium 3.5 mMol/L (3.4-5.1); Sodium 143 mMol/L (136-145); Total Protein 6.1 gm/dL (5.7-8.2); eGFR > 60 See Note
[2024-12-03 08:00] VITALS: BP 120/82; PULSE 78; RESP 16; TEMP 36.4; O2SAT 94
[2024-12-03] MEDS: MULTIVITAMINS TABLET 1 TAB PO (10:03)
[2024-12-03 12:00] VITALS: BP 115/78; PULSE 77; RESP 18; TEMP 36.3; O2SAT 95
--- NOTE | 2024-12-03 12:13 | ESDS_ITS ---
<Statement entered by Odilon Andrade MD - 12/03/24 16:18> I have personally seen and examined the patient. I agree with the resident's discharge summary as documented below. Odilon Andrade DO PGY-2 Internal Medicine - GME Planned Discharge Date 12/03/24 DS: Providers Provider Date of admission: 11/30/24 11:28 Primary care physician: Alin Rodriguez MD Admitting Provider: Tatyana Thomason MD Attending Provider on Admission: Tatyana Thomason MD Consults: 11/30/24 10:34 Consult to Gastroenterology Stat Comment: Consulting Provider: Diana Hoyt 11/30/24 14:23 Referral Registered Dietitian Routine Comment: 12/02/24 14:54 Referral Speech Therapy Routine Comment: dysphagia, s/p dilatation Attending Provider on DC: Ashly Geronimo DO Discharging Provider: Ashly Geronimo DO DS: Diagnosis Problem List Completed Was Problem List Reviewed/Reconciled?: Yes Hospital Course Hospital Course Hospital course: Summary: Patient is a 34-year-old male with past medical history of alcohol syndrome, speech impairment, chronic dysphagia presented on 11/30 for worsening of dysphagia since last 2 months, admitted for dysphagia workup. Consulted Dr. Hoyt who performed endoscopy with dilatation, also collected biopsy of stomach and duodenum due to erythema. Will notify patient of pathology results at a later time. Was able to slowly advance diet per patient's comfort level, consulted dietary and speech therapy to give patient recommendations for food at home. During admission, patient's bilirubin was elevated, did not receive any medications that might elevate bilirubin levels. Suspect Gilbert's syndrome, consider outpatient workup. Found incidental 7 mm gallbladder polyp on liver ultrasound, consulted surgeon Dr Hernandez who does not recommend cholecystectomy at this time, will defer to outpatient follow-up. Patient was medically stable upon discharge. ED Course: - Vitals are stable at the time of admission - Labs are significant for hemoglobin 16.4, total bilirubin 1.4 - CT chest/abdomen/face showed 2 mm pulmonary nodule in the anterior segment right upper lobe, IVC is dilated - Supervisor Case Loading, Dr. Hoyt is consulted and he recommended to admit the patient for PEG tube placement Discharge Recommendations: -Follow-up with PCP within 1 week of discharge. If you do not have appointment, please follow-up with the [facility] with Dr. Elam. Call [phone] to make an appointment. -Take Hydroxyzine 25mg as needed for anxiety -Follow up with Dr. Hoyt within 1 week of discharge -Return to ED if symptoms persist or return Hospital Diagnoses: # Dysphagia # Esophageal dysmotility disorder #Hyperbilirubinemia #Gilbert's syndrome? #7 mm gallbladder polyp #Polycythemia, resolved # History of alcohol syndrome #Mild cognitive impairment #Speech delay Disposition: Safe discharge to home. Patient plan of care was discussed with the attending physician, Dr. Thomason. Ashly Geronimo, PGY-1 Time Spent with Patient Time attestation: Total time spent providing and/or coordinating discharge services: 36 min Time spent: Greater than 30 minutes Exam Vital Signs Temp Pulse Resp BP Pulse Ox O2 Del Method O2 Flow Rate 97.5 F 78 16 120/82 94 L Room Air 3 12/03/24 08:00 12/03/24 08:00 12/03/24 08:00 12/03/24 08:00 12/03/24 08:00 12/03/24 08:00 12/01/24 20:10 Narrative Exam Physical Exam General: Awake and in no acute distress. Conversational and non-toxic appearing. Mild cognitive impairment and speech delay. HEENT: Normocephalic, atraumatic, mucous membranes moist. Heart: Regular rate and rhythm, normal S1 and S2, no murmurs. Lungs: Clear to auscultation with no wheezing or crackles. Abdomen: Soft, nondistended, nontender, positive bowel sounds. No guarding or rebound tenderness. Neurologic: Alert and oriented x3, no gross neurological deficit, and patient able to move all 4 extremities. Extremities: No edema. Skin: No rash or ecchymoses. Discharge Plan Plan Patient Disposition: HOME (Self Care) Patient condition on transfer: Stable Care Plan Goals: -Follow-up with Primary Care Physician within 1 week of discharge. If you do not have appointment, please follow-up with the [facility] with Dr. Elam. Call [phone] to make an appointment. -Take Hydroxyzine 25mg as needed for anxiety -Follow up with Dr. Hoyt within 1 week of discharge -Return to Emergency Department if symptoms persist or return Prescriptions/Referrals Prescriptions/Med Rec: New hydroxyzine HCl 25 mg tablet 25 mg PO HS Qty: 5 0RF Discontinued ibuprofen 600 MG tablet 1 tab PO Q8HR PRN (Reason: INFLAMMATION) Qty: 30 0RF Referrals: Deo Hernandez MD [Physician, General Surgery] Diana Hoyt MD [Physician, Gastroenterology] Alin Rodriguez MD [Primary Care Provider, Family Practice] Patient/Caregiver Discharge Instructions Education Materials: Upper GI Endoscopy, Anatomy of the Digestive System, ED Esophageal Spasm Print Language: Nigerian Stand Alone Forms: [facility] Award Info., Patient Portal Info Letter, Work/Release Restrictions Discharge Order Discharge Orders: Discharge (Routine); Ordered 12/03/24 Ordered By: Dawood Elam Quality Discharge Quality Measures VTE prophylaxis MD Attestestation MD Attestation I attest that I was physically present for the evaluation, physical examination, lab and imaging review of the patient with the residents. I discussed the case with the residents and agree with the findings and plans of care as documented above. At bedside today, patient states she is feeling well and denies any new complaints. Appears comfortable and has been tolerating diet well. Patient was able to tolerate. Diet well but apprehensive on solid diet, bilirubin level has been downtrending.. With transient indirect hyperbilirubinemia with negative LDH patient may need further outpatient workup regarding his hyperbilirubinemia. Patient deemed stable for discharge on his home medication. We will start a few tablets of hydroxyzine for his anxiety. Counseled on slowly advancing diet at home, recommended to follow-up with PCP, gastroenterology in 1 to 2 weeks of discharge. Tatyana Thomason MD
[2024-12-03 16:00] VITALS: BP 111/73; PULSE 88; RESP 18; TEMP 36.3; O2SAT 94
--- NOTE | 2024-12-03 20:03 | PD.IMPROG ---
Documentation for date of: 12/03/24 Subjective Subjective Interval history: Late entry for the note Case discussed with internal medicine team Okay to discharge Patient eating Exam Vital Signs Temp Pulse Resp BP Pulse Ox O2 Del Method O2 Flow Rate 97.4 F 88 18 111/73 94 L Room Air 3 12/03/24 16:00 12/03/24 16:00 12/03/24 16:00 12/03/24 16:00 12/03/24 16:00 12/03/24 16:00 12/01/24 20:10 Objective Labs 12/03/24 05:45 12/03/24 05:45 Labs: Laboratory Results - last 24 hr 12/03/24 05:45 WBC 7.0 RBC 4.67 Hgb 14.8 Hct 41.5 MCV 89 MCH 31.7 MCHC 35.7 RDW Std Deviation 38.5 Plt Count 171 Neut % (Auto) 66 Lymph % (Auto) 23 [place] % (Auto) 8 Eos % (Auto) 2 Baso % (Auto) 1 Neut # (Auto) 4.6 Lymph # (Auto) 1.6 [place] # (Auto) 0.5 Eos # (Auto) 0.2 Baso # (Auto) 0.0 Immature Gran # (Auto) 0.01 H Absolute Nucleated RBC 0.00 Immature Gran % 0 Nucleated RBC % 0 Sodium 143 Potassium 3.5 Chloride 106 Carbon Dioxide 28.8 Anion Gap 8 BUN < 5 L Creatinine 0.8 Estim Creat Clear Calc 126.3 eGFR > 60 BUN/Creatinine Ratio 6 L Glucose 101 Calculated Osmolality 282 Calcium 9.0 Corrected Calcium 9.2 Total Bilirubin 1.6 H D AST 16 ALT 21 Alkaline Phosphatase 81 Total Protein 6.1 Albumin 3.7 Globulin 2.4 Albumin/Globulin Ratio 1.5 Impressions Impression: Dysphagia status post endoscopic esophageal dilatation doing well Okay to discharge patient home Assessment & Plan A&P Narrative Progressive dysphagia in a patient with previous history of endoscopic dilatation In addition patient has moderate dysfunction of the esophagus Suggestions Patient should initially undergo fiberoptic esophagogastroduodenoscopy with aggressive esophageal dilatation and if the dysphagia improved nothing needs to be done If no improvement in the dysphagia consider placement of a percutaneous endoscopic gastrostomy tube We will get a consent after talking with the family patient has been scheduled tentatively for tomorrow Other medical problems include alcohol syndrome with speech impairment Thank you very much for the opportunity to participate in the care of this patient Time Spent With Patient Time: Total time spent is greater than 50% in coordination of care (as documented) at patient's floor/unit and/or counseling patient:
== END 2024-12-03 18:05 | disposition home or self-care (01) ==
LOC: SERX 11:08 → SERHOLD 13:58 → S3SX 20:37 → SERHOLD 12-01 13:34 → S3SX 12-01 13:34
PROVIDERS: Nurse Practitioner Primary Care; Specialist; Admitting Provider Student in an Organized Health Care Education/Training Program; Emergency Provider Emergency Medicine; PCP Family Medicine; Visit Provider Student in an Organized Health Care Education/Training Program
PROC: (CPT 43239; principal; 2024-12-01 20:00)
DX: K22.4 Dyskinesia of esophagus (principal); Q86.0 Fetal alcohol syndrome (dysmorphic); R13.10 Dysphagia, unspecified; K82.4 Cholesterolosis of gallbladder; R91.1 Solitary pulmonary nodule; K22.2 Esophageal obstruction; K29.70 Gastritis, unspecified, without bleeding; K31.89 Other diseases of stomach and duodenum; K20.90 Esophagitis, unspecified without bleeding; G31.84 Mild cognitive impairment of uncertain or unknown etiology; F80.9 Developmental disorder of speech and language, unspecified; D75.1 Secondary polycythemia; R17 Unspecified jaundice
CPT/HCPCS: 43248; 43239; 36415; 70491; 71260; 74177; 76700; 80053; 80061; 80307; 81001; 82248; 83615; 83690; 83735; 84443; 85025; 92610; 96361; 96374; 96375; 96376; 99284; A4649; C1769; G0378; J1171; J1200; J2250; J2405; J2470; J3010; J7120; Q9967; A9270